=== PATIENT | male | born 1960 | race Caucasian/White ===

== ENCOUNTER 2017-11-29 11:03 | Inpatient (IN) | payer OTHER ==
[2017-11-29 11:46] VITALS: BMI 29.5
--- NOTE | 2017-11-29 12:14 | HP ---
COWS - Scale Resting Pulse: 0= [place] 80 or Below Sweatin= Chills/Flushing Restless Observation: 1= Difficult to Sit Still Pupil Size: 0= Normal to Room Light Bone or Joint Aches: 1= Mild Discomfort Runny Nose/ Eye Tearin= Nasal Congestion GI Upset > 30mins: 1= Stomach Cramp Tremor Observation: 1= Tremor [place], Not Seen Yawning Observation: 1= 1-2x During Session Anxiety or Irritability: 1=Feels Anxious/Irritable Goose Flesh Skin: 0=Smooth Skin COWS Score: 8 Admission ROS BHS - HPI Chief Complaint: I need help, I can't stop on my own, I went down the wrong track Allergies/Adverse Reactions: Allergies Allergy/AdvReac Type Severity Reaction Status Date / Time No Known Allergies Allergy Verified 11/29/17 12:14 History of Present Illness: 57 yo gentleman here for opiate detox - first time here, previous detox about 5 years ago elsewhere. Never in methadone or suboxone program. No seizures, no black outs, no overdoses. 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 Exam Limitations: Clinical Condition - Ebola screening Have you traveled outside of the country in the last 21 days: No (N) Have you had contact with anyone from an Ebola affected area: No Have you been sick,other than usual withdrawal symptoms: No Do you have a fever: No - Review of Systems Constitutional: Loss of Appetite, Malaise, Changes in sleep, Unintentional Wgt. Loss EENT: reports: Nose Congestion Respiratory: reports: No Symptoms reported Cardiac: reports: No Symptoms Reported GI: reports: Nausea, Poor Appetite : reports: No Symptoms Reported Musculoskeletal: reports: Back Pain, Muscle Pain Integumentary: reports: No Symptoms Reported Neuro: reports: Headache Endocrine: reports: No Symptoms Reported Hematology: reports: No Symptoms Reported Psychiatric: reports: Judgement Intact, Mood/Affect Appropiate, Orientated x3, Anxious Other Systems: Reviewed and Negative Patient History - Patient Medical History Hx Anemia: No Hx Asthma: No Hx Chronic Obstructive Pulmonary Disease (COPD): No Hx Cancer: No Hx Cardiac Disorders: No Hx Congestive Heart Failure: No Hx Hypertension: No Hx Hypercholesterolemia: No Hx Pacemaker: No HX Cerebrovascular Accident: No Hx Seizures: No Hx Dementia: No Hx Diabetes: No Hx Gastrointestinal Disorders: No Hx Liver Disease: No Hx Genitourinary Disorders: No Hx Sexually Transmitted Disorders: No Hx Renal Disease (ESRD): No Hx Thyroid Disease: No Hx Human Immunodeficiency Virus (HIV): No Hx Hepatitis C: No Hx Depression: No Hx Suicide Attempt: No Hx Bipolar Disorder: No Hx Schizophrenia: No - Patient Surgical History Past Surgical History: No - PPD History Previous Implant?: Yes Documented Results: Negative w/o proof Implanted On Prior R Admission?: No PPD to be Administered?: Yes - Reproductive History Patient is a Female of Child Bearing Age (11 -55 yrs old): No (male) - Smoking Cessation Smoking history: Current some day smoker Have you smoked in the past 12 months: Yes Aproximately how many cigarettes per day: 1 Initiated information on smoking cessation: Yes 'Breaking Loose' booklet given: 11/29/17 (give on floor) - Substance & Tx. History Hx Alcohol Use: No Hx Substance Use: Yes Substance Use Type: Heroin, Opiates Hx Substance Use Treatment: Yes (detox, ) - Substances Abused street methadone Route: Oral Frequency: 1-2 times per week Amount used: 20mg Age of first use: 51 Date of Last Use: 11/23/17 Heroin Route: Inhalation Frequency: Daily Amount used: 5 bags Age of first use: 41 Date of Last Use: 11/29/17 Family Disease History - Family Disease History Family Disease History: [place]: Mother (, ), Other: Father ( - never knew him), Mother, Brother (one living- healthy), Sister (one living - healthy), Son (one - living -healthy), Daughter (one - living - healthy) Admission Physical Exam S - Vital Signs Vital Signs: Vital Signs - 24 hr 11/29/17 11:44 Temperature 96.3 F L Pulse Rate 73 Respiratory 20 Rate Blood Pressure 137/83 - Physical General Appearance: Yes: Nourished, Appropriately Dressed, Mild Distress HEENTM: Yes: EOMI, Hearing grossly Normal, Normocephalic, Normal Voice, Pharynx Normal, Nasal Congestion Respiratory: Yes: Normal Breath Sounds, No Respiratory Distress Neck: Yes: No masses,lesions,Nodules, Supple Breast: Yes: Breast Exam Deferred Cardiology: Yes: Regular Rhythm, Regular Rate Abdominal: Yes: Flat, Soft Genitourinary: Yes: Hesitency Back: Yes: Normal Inspection Musculoskeletal: Yes: full range of Motion, Gait Steady Extremities: Yes: Normal Inspection, Normal Range of Motion, Non-Tender Neurological: Yes: Fully Oriented, Alert, Motor Strength 5/5, Normal Mood/Affect , Normal Response Integumentary: Yes: Normal Color, Warm Lymphatic: Yes: Within Normal Limits - Diagnostic (1) Opioid dependence with withdrawal Current Visit: Yes Status: Chronic (2) Dehydration Current Visit: Yes Status: Acute Cleared for Admission [facility] - Detox or Rehab [facility] Level of Care: Medically Managed Detox Regimen/Protocol: Methadone [facility] Breath Alcohol Content Breath Alcohol Content: 0 Urine Drug Screen - Results Drug Screen Negative: No Urine Drug Screen Results: OPI-Opiates, MTD-Methadone, OXY-Oxycodone
[2017-11-29] MEDS ORDERED: MAG HYDROX/AL HYDROX/SIMETH 30 ML UNIT-DOSE CUP PO PRN (12:20)
[2017-11-29] MEDS ORDERED: LOPERAMIDE HCL 2 MG CAPSULE PO PRN (12:20)
[2017-11-29] MEDS ORDERED: MENTHOL/PHENOL 1 EACH UD MM PRN (12:20)
[2017-11-29] MEDS ORDERED: P-EPHED 60MG/TRIPROLIDI 2.5MG TABLET PO PRN (12:20)
[2017-11-29] MEDS ORDERED: hydrOXYzine PAMOATE 50 MG CAPSULE (FP) PO PRN (12:20)
[2017-11-29] MEDS ORDERED: IBUPROFEN 400 MG TABLET (FP) PO PRN (12:20)
[2017-11-29] MEDS ORDERED: MAGNESIUM CITRATE 300 ML BOTTLE PO PRN (12:20)
[2017-11-29] MEDS ORDERED: guaiFENesin/D-METHORPHAN HB 10 ML UNIT-DOSE CUPS PO PRN (12:20)
[2017-11-29] MEDS ORDERED: ACETAMINOPHEN 325 MG TABLET (FP) PO PRN (12:20)
[2017-11-29] MEDS ORDERED: MAGNESIUM HYDROX 2400MG/30ML ORAL SUSPENSION 30 ML CUP PO PRN (12:20)
[2017-11-29] MEDS ORDERED: METHADONE HCL 10 MG TABLET (FOR DETOX USE ONLY) PO ONE ×2 (12:45→23:00)
[2017-11-29] MEDS: diazePAM 5 MG TABLET PO PRN ×2 (13:08→22:35)
[2017-11-29 18:24] LABS: URINE APPEARANCE TURBID; URINE BILIRUBIN NEGATIVE (NEGATIVE); URINE BLOOD NEGATIVE (NEGATIVE); URINE COLOR YELLOW; URINE GLUCOSE (UA) NEGATIVE (NEGATIVE); URINE KETONE NEGATIVE (NEGATIVE); URINE LEUK ESTERASE NEGATIVE (NEGATIVE); URINE NITRITE NEGATIVE (NEGATIVE); URINE PROTEIN NEGATIVE (NEGATIVE)
[2017-11-29] MEDS: THIAMINE HCL 100 MG TABLET (FP) PO SCH (22:35)
[2017-11-30] MEDS ORDERED: TRIMETHOBENZAMIDE HCL 200MG/2ML INJ IM PRN (05:51)
--- NOTE | 2017-11-30 08:39 | EKG ---
Test Reason : Blood Pressure : / mmHG Vent. Rate : 061 BPM Atrial Rate : 061 BPM P-R Int : 126 ms QRS Dur : 078 ms QT Int : 400 ms P-R-T Axes : 024 049 046 degrees QTc Int : 402 ms NORMAL SINUS RHYTHM NORMAL ECG NO PREVIOUS ECGS AVAILABLE Confirmed by YURY NÚÑEZ, MARCOS ([id number]) on 11/30/2017 8:39:21 AM Referred By: Confirmed By:MARCOS COTTON MD
[2017-11-30] MEDS ORDERED: METHADONE HCL 10 MG TABLET (FOR DETOX USE ONLY) PO ONE (10:00)
[2017-11-30] MEDS: PRENATAL VITAMINS W/ FOLIC ACID TABLET (FP) PO SCH (10:14)
[2017-11-30] MEDS: diazePAM 5 MG TABLET PO PRN ×3 (10:16→22:12)
[2017-11-30 10:20] LABS: HEMATOCRIT 46.2 % (35.4-49); HEMOGLOBIN 14.9 GM/dL (11.7-16.9); MCH 28.4 pg (25.7-33.7); MCHC 32.4 g/dl (32.0-35.9); MEAN CELL VOLUME 87.6 fl (80-96); MEAN PLT VOLUME 11.2 fl (7.5-11.1); PLATELET COUNT 124 K/MM3 (134-434); RBC 5.27 M/mm3 (4.00-5.60); RDW 13.1 % (11.9-15.9); WHITE BLOOD COUNT 14.1 K/mm3 (4.0-10.0)
[2017-11-30 10:26] LABS: ANION GAP 5 (8-16); BILIRUBIN,TOTAL 0.6 mg/dL (0.2-1.0); BLOOD UREA NITROGEN 17 mg/dL (7-18); CALCIUM 8.7 mg/dL (8.5-10.1); CHLORIDE 104 mmol/L (98-107); CO2 31 mmol/L (21-32); GLUCOSE,RANDOM 108 mg/dL (74-106); SGOT/AST 14 U/L (15-37); SGPT/ALT 24 U/L (12-78); SODIUM 140 mmol/L (136-145)
[2017-11-30 10:28] LABS: ALK PHOS 72 U/L (45-117); CREATININE 1.1 mg/dL (0.7-1.3)
--- NOTE | 2017-11-30 14:19 | PN ---
S COWS - Scale Resting Pulse: 0= [place] 80 or Below Sweatin= Chills/Flushing Restless Observation: 1= Difficult to Sit Still Pupil Size: 0= Normal to Room Light Bone or Joint Aches: 2= Severe Diffuse Aches Runny Nose/ Eye Tearin= Runny Nose/Eyes GI Upset > 30mins: 3= Vomiting/Diarrhea Tremor Observation of Outstretched Hands: 1= Tremor [place], Not Seen Yawning Observation: 0= None Anxiety or Irritability: 1=Feels Anxious/Irritable Goose Flesh Skin: 0=Smooth Skin COWS Score: 11 [facility] Progress Note (SOAP) Subjective: nausea vomiting "earlier today" joints aches tolerates food and fluid better that stop vomiting Objective: 11/30/17 14:15 Vital Signs Temperature 97.0 F L 11/30/17 10:09 Pulse Rate 76 11/30/17 10:09 Respiratory Rate 18 11/30/17 10:09 Blood Pressure 146/93 11/30/17 10:09 O2 Sat by Pulse Oximetry (%) Laboratory Last Values WBC 14.1 K/mm3 (4.0-10.0) H 11/30/17 08:00 RBC 5.27 M/mm3 (4.00-5.60) 11/30/17 08:00 Hgb 14.9 GM/dL (11.7-16.9) 11/30/17 08:00 Hct 46.2 % (35.4-49) 11/30/17 08:00 MCV 87.6 fl (80-96) 11/30/17 08:00 MCH 28.4 pg (25.7-33.7) 11/30/17 08:00 MCHC 32.4 g/dl (32.0-35.9) 11/30/17 08:00 RDW 13.1 % (11.9-15.9) 11/30/17 08:00 Plt Count 124 K/MM3 (134-434) L 11/30/17 08:00 MPV 11.2 fl (7.5-11.1) H 11/30/17 08:00 Sodium 140 mmol/L (136-145) 11/30/17 08:00 Potassium 4.0 mmol/L (3.5-5.1) 11/30/17 08:00 Chloride 104 mmol/L (98-107) 11/30/17 08:00 Carbon Dioxide 31 mmol/L (21-32) 11/30/17 08:00 Anion Gap 5 (8-16) L 11/30/17 08:00 BUN 17 mg/dL (7-18) 11/30/17 08:00 Creatinine 1.1 mg/dL (0.7-1.3) 11/30/17 08:00 Creat Clearance w eGFR > 60 (>60) 11/30/17 08:00 Random Glucose 108 mg/dL (74-106) H 11/30/17 08:00 Calcium 8.7 mg/dL (8.5-10.1) 11/30/17 08:00 Total Bilirubin 0.6 mg/dL (0.2-1.0) 11/30/17 08:00 AST 14 U/L (15-37) L 11/30/17 08:00 ALT 24 U/L (12-78) 11/30/17 08:00 Alkaline Phosphatase 72 U/L (45-117) 11/30/17 08:00 Total Protein 8.0 g/dl (6.4-8.2) 11/30/17 08:00 Albumin 4.0 g/dl (3.4-5.0) 11/30/17 08:00 Urine Color Yellow 11/29/17 13:46 Urine Appearance Turbid 11/29/17 13:46 Urine pH 5.0 (5.0-8.0) 11/29/17 13:46 Ur Specific [place] 1.030 (1.001-1.035) 11/29/17 13:46 Urine Protein Negative (NEGATIVE) 11/29/17 13:46 Urine Glucose (UA) Negative (NEGATIVE) 11/29/17 13:46 Urine Ketones Negative (NEGATIVE) 11/29/17 13:46 Urine Blood Negative (NEGATIVE) 11/29/17 13:46 Urine Nitrite Negative (NEGATIVE) 11/29/17 13:46 Urine Bilirubin Negative (NEGATIVE) 11/29/17 13:46 Urine Urobilinogen 2.0 mg/dL (0.2-1.0) 11/29/17 13:46 Ur Leukocyte Esterase Negative (NEGATIVE) 11/29/17 13:46 RPR Titer Nonreactive (NONREACTIVE) 11/30/17 08:00 lab noted Assessment: 11/30/17 14:19 withdrawal sx Plan: continue detox
[2017-11-30] MEDS ORDERED: amLODIPine BESYLATE 5 MG TABLET (FP) PO SCH (22:00)
[2017-11-30] MEDS: THIAMINE HCL 100 MG TABLET (FP) PO SCH (22:12)
[2017-12-01] MEDS ORDERED: METHADONE HCL 5 MG TABLET (FOR DETOX USE ONLY) PO ONE (10:00)
[2017-12-01] MEDS ORDERED: amLODIPine BESYLATE 5 MG TABLET (FP) PO SCH (10:00)
[2017-12-01] MEDS: amLODIPine BESYLATE 5 MG TABLET (FP) PO SCH (10:17)
[2017-12-01] MEDS: diazePAM 5 MG TABLET PO PRN ×3 (10:17→22:23)
[2017-12-01] MEDS: PRENATAL VITAMINS W/ FOLIC ACID TABLET (FP) PO SCH (10:17)
--- NOTE | 2017-12-01 10:57 | PN ---
BHS COWS - Scale Resting Pulse: 0= [place] 80 or Below Sweatin= Chills/Flushing Restless Observation: 1= Difficult to Sit Still Pupil Size: 0= Normal to Room Light Bone or Joint Aches: 2= Severe Diffuse Aches Runny Nose/ Eye Tearin= Nasal Congestion GI Upset > 30mins: 1= Stomach Cramp Tremor Observation of Outstretched Hands: 1= Tremor [place], Not Seen Yawning Observation: 2= >3x During Session Anxiety or Irritability: 0= None Goose Flesh Skin: 0=Smooth Skin COWS Score: 9 [facility]HS Progress Note (SOAP) Subjective: tremor stuffy nose anxiety sweat restlessness Objective: 12/01/17 10:54 Vital Signs Temperature 97.6 F 12/01/17 10:45 Pulse Rate 84 12/01/17 10:45 Respiratory Rate 17 12/01/17 10:45 Blood Pressure 133/91 12/01/17 10:45 O2 Sat by Pulse Oximetry (%) Laboratory Last Values WBC 14.1 K/mm3 (4.0-10.0) H 11/30/17 08:00 RBC 5.27 M/mm3 (4.00-5.60) 11/30/17 08:00 Hgb 14.9 GM/dL (11.7-16.9) 11/30/17 08:00 Hct 46.2 % (35.4-49) 11/30/17 08:00 MCV 87.6 fl (80-96) 11/30/17 08:00 MCH 28.4 pg (25.7-33.7) 11/30/17 08:00 MCHC 32.4 g/dl (32.0-35.9) 11/30/17 08:00 RDW 13.1 % (11.9-15.9) 11/30/17 08:00 Plt Count 124 K/MM3 (134-434) L 11/30/17 08:00 MPV 11.2 fl (7.5-11.1) H 11/30/17 08:00 Sodium 140 mmol/L (136-145) 11/30/17 08:00 Potassium 4.0 mmol/L (3.5-5.1) 11/30/17 08:00 Chloride 104 mmol/L (98-107) 11/30/17 08:00 Carbon Dioxide 31 mmol/L (21-32) 11/30/17 08:00 Anion Gap 5 (8-16) L 11/30/17 08:00 BUN 17 mg/dL (7-18) 11/30/17 08:00 Creatinine 1.1 mg/dL (0.7-1.3) 11/30/17 08:00 Creat Clearance w eGFR > 60 (>60) 11/30/17 08:00 Random Glucose 108 mg/dL (74-106) H 11/30/17 08:00 Calcium 8.7 mg/dL (8.5-10.1) 11/30/17 08:00 Total Bilirubin 0.6 mg/dL (0.2-1.0) 11/30/17 08:00 AST 14 U/L (15-37) L 11/30/17 08:00 ALT 24 U/L (12-78) 11/30/17 08:00 Alkaline Phosphatase 72 U/L (45-117) 11/30/17 08:00 Total Protein 8.0 g/dl (6.4-8.2) 11/30/17 08:00 Albumin 4.0 g/dl (3.4-5.0) 11/30/17 08:00 Urine Color Yellow 11/29/17 13:46 Urine Appearance Turbid 11/29/17 13:46 Urine pH 5.0 (5.0-8.0) 11/29/17 13:46 Ur Specific [place] 1.030 (1.001-1.035) 11/29/17 13:46 Urine Protein Negative (NEGATIVE) 11/29/17 13:46 Urine Glucose (UA) Negative (NEGATIVE) 11/29/17 13:46 Urine Ketones Negative (NEGATIVE) 11/29/17 13:46 Urine Blood Negative (NEGATIVE) 11/29/17 13:46 Urine Nitrite Negative (NEGATIVE) 11/29/17 13:46 Urine Bilirubin Negative (NEGATIVE) 11/29/17 13:46 Urine Urobilinogen 2.0 mg/dL (0.2-1.0) 11/29/17 13:46 Ur Leukocyte Esterase Negative (NEGATIVE) 11/29/17 13:46 RPR Titer Nonreactive (NONREACTIVE) 11/30/17 08:00 lab noted Assessment: 12/01/17 10:57 withdrawal sx Plan: continue detox
[2017-12-01] MEDS: THIAMINE HCL 100 MG TABLET (FP) PO SCH (22:23)
[2017-12-02] MEDS ORDERED: METHADONE HCL 5 MG TABLET (FOR DETOX USE ONLY) PO ONE (10:00)
--- NOTE | 2017-12-02 10:02 | PN ---
BHS Progress Note (SOAP) Subjective: joint ache sweat tremor restlessness anxiety Objective: 12/02/17 10:00 Vital Signs Temperature 97.2 F L 12/02/17 06:24 Pulse Rate 61 12/02/17 06:24 Respiratory Rate 18 12/02/17 06:24 Blood Pressure 110/70 12/02/17 06:24 O2 Sat by Pulse Oximetry (%) Laboratory Last Values WBC 14.1 K/mm3 (4.0-10.0) H 11/30/17 08:00 RBC 5.27 M/mm3 (4.00-5.60) 11/30/17 08:00 Hgb 14.9 GM/dL (11.7-16.9) 11/30/17 08:00 Hct 46.2 % (35.4-49) 11/30/17 08:00 MCV 87.6 fl (80-96) 11/30/17 08:00 MCH 28.4 pg (25.7-33.7) 11/30/17 08:00 MCHC 32.4 g/dl (32.0-35.9) 11/30/17 08:00 RDW 13.1 % (11.9-15.9) 11/30/17 08:00 Plt Count 124 K/MM3 (134-434) L 11/30/17 08:00 MPV 11.2 fl (7.5-11.1) H 11/30/17 08:00 Sodium 140 mmol/L (136-145) 11/30/17 08:00 Potassium 4.0 mmol/L (3.5-5.1) 11/30/17 08:00 Chloride 104 mmol/L (98-107) 11/30/17 08:00 Carbon Dioxide 31 mmol/L (21-32) 11/30/17 08:00 Anion Gap 5 (8-16) L 11/30/17 08:00 BUN 17 mg/dL (7-18) 11/30/17 08:00 Creatinine 1.1 mg/dL (0.7-1.3) 11/30/17 08:00 Creat Clearance w eGFR > 60 (>60) 11/30/17 08:00 Random Glucose 108 mg/dL (74-106) H 11/30/17 08:00 Calcium 8.7 mg/dL (8.5-10.1) 11/30/17 08:00 Total Bilirubin 0.6 mg/dL (0.2-1.0) 11/30/17 08:00 AST 14 U/L (15-37) L 11/30/17 08:00 ALT 24 U/L (12-78) 11/30/17 08:00 Alkaline Phosphatase 72 U/L (45-117) 11/30/17 08:00 Total Protein 8.0 g/dl (6.4-8.2) 11/30/17 08:00 Albumin 4.0 g/dl (3.4-5.0) 11/30/17 08:00 Urine Color Yellow 11/29/17 13:46 Urine Appearance Turbid 11/29/17 13:46 Urine pH 5.0 (5.0-8.0) 11/29/17 13:46 Ur Specific [place] 1.030 (1.001-1.035) 11/29/17 13:46 Urine Protein Negative (NEGATIVE) 11/29/17 13:46 Urine Glucose (UA) Negative (NEGATIVE) 11/29/17 13:46 Urine Ketones Negative (NEGATIVE) 11/29/17 13:46 Urine Blood Negative (NEGATIVE) 11/29/17 13:46 Urine Nitrite Negative (NEGATIVE) 11/29/17 13:46 Urine Bilirubin Negative (NEGATIVE) 11/29/17 13:46 Urine Urobilinogen 2.0 mg/dL (0.2-1.0) 11/29/17 13:46 Ur Leukocyte Esterase Negative (NEGATIVE) 11/29/17 13:46 RPR Titer Nonreactive (NONREACTIVE) 11/30/17 08:00 lab noted Assessment: 12/02/17 10:01 withdrawal sx Plan: continue detox
[2017-12-02] MEDS: PRENATAL VITAMINS W/ FOLIC ACID TABLET (FP) PO SCH (10:36)
[2017-12-02] MEDS: amLODIPine BESYLATE 5 MG TABLET (FP) PO SCH (10:38)
[2017-12-02] MEDS: THIAMINE HCL 100 MG TABLET (FP) PO SCH (22:16)
[2017-12-03] MEDS ORDERED: COLLOIDAL OATMEAL 1 BAR EACH TP PRN (08:59)
[2017-12-03] MEDS ORDERED: METHADONE HCL 10 MG TABLET (FOR DETOX USE ONLY) PO ONE (10:00)
[2017-12-03] MEDS: amLODIPine BESYLATE 5 MG TABLET (FP) PO SCH (10:18)
[2017-12-03] MEDS: PRENATAL VITAMINS W/ FOLIC ACID TABLET (FP) PO SCH (10:18)
--- NOTE | 2017-12-03 12:25 | PN ---
BHS Progress Note (SOAP) Subjective: reports feeling better no body aches less sweat Objective: 12/03/17 12:24 Vital Signs Temperature 97.0 F L 12/03/17 10:30 Pulse Rate 82 12/03/17 10:30 Respiratory Rate 16 12/03/17 10:30 Blood Pressure 129/80 12/03/17 10:30 O2 Sat by Pulse Oximetry (%) Laboratory Last Values WBC 14.1 K/mm3 (4.0-10.0) H 11/30/17 08:00 RBC 5.27 M/mm3 (4.00-5.60) 11/30/17 08:00 Hgb 14.9 GM/dL (11.7-16.9) 11/30/17 08:00 Hct 46.2 % (35.4-49) 11/30/17 08:00 MCV 87.6 fl (80-96) 11/30/17 08:00 MCH 28.4 pg (25.7-33.7) 11/30/17 08:00 MCHC 32.4 g/dl (32.0-35.9) 11/30/17 08:00 RDW 13.1 % (11.9-15.9) 11/30/17 08:00 Plt Count 124 K/MM3 (134-434) L 11/30/17 08:00 MPV 11.2 fl (7.5-11.1) H 11/30/17 08:00 Sodium 140 mmol/L (136-145) 11/30/17 08:00 Potassium 4.0 mmol/L (3.5-5.1) 11/30/17 08:00 Chloride 104 mmol/L (98-107) 11/30/17 08:00 Carbon Dioxide 31 mmol/L (21-32) 11/30/17 08:00 Anion Gap 5 (8-16) L 11/30/17 08:00 BUN 17 mg/dL (7-18) 11/30/17 08:00 Creatinine 1.1 mg/dL (0.7-1.3) 11/30/17 08:00 Creat Clearance w eGFR > 60 (>60) 11/30/17 08:00 Random Glucose 108 mg/dL (74-106) H 11/30/17 08:00 Calcium 8.7 mg/dL (8.5-10.1) 11/30/17 08:00 Total Bilirubin 0.6 mg/dL (0.2-1.0) 11/30/17 08:00 AST 14 U/L (15-37) L 11/30/17 08:00 ALT 24 U/L (12-78) 11/30/17 08:00 Alkaline Phosphatase 72 U/L (45-117) 11/30/17 08:00 Total Protein 8.0 g/dl (6.4-8.2) 11/30/17 08:00 Albumin 4.0 g/dl (3.4-5.0) 11/30/17 08:00 Urine Color Yellow 11/29/17 13:46 Urine Appearance Turbid 11/29/17 13:46 Urine pH 5.0 (5.0-8.0) 11/29/17 13:46 Ur Specific [place] 1.030 (1.001-1.035) 11/29/17 13:46 Urine Protein Negative (NEGATIVE) 11/29/17 13:46 Urine Glucose (UA) Negative (NEGATIVE) 11/29/17 13:46 Urine Ketones Negative (NEGATIVE) 11/29/17 13:46 Urine Blood Negative (NEGATIVE) 11/29/17 13:46 Urine Nitrite Negative (NEGATIVE) 11/29/17 13:46 Urine Bilirubin Negative (NEGATIVE) 11/29/17 13:46 Urine Urobilinogen 2.0 mg/dL (0.2-1.0) 11/29/17 13:46 Ur Leukocyte Esterase Negative (NEGATIVE) 11/29/17 13:46 RPR Titer Nonreactive (NONREACTIVE) 11/30/17 08:00 lab noted Assessment: 12/03/17 12:24 mild withdrawal sx 12/03/17 12:25 Plan: medically supervised detox
[2017-12-03] MEDS: THIAMINE HCL 100 MG TABLET (FP) PO SCH (22:43)
[2017-12-04] MEDS ORDERED: METHADONE HCL 5 MG TABLET (FOR DETOX USE ONLY) PO ONE (06:00)
--- NOTE | 2017-12-04 08:37 | DS ---
[facility] Detox Discharge Summary Admission Date: 11/29/17 Discharge Date: 11/27/17 - History Present History: Opioid Dependence - Physical Exam Results Vital Signs: Vital Signs Temperature 97.5 F L 12/04/17 06:00 Pulse Rate 62 12/04/17 06:00 Respiratory Rate 18 12/04/17 06:00 Blood Pressure 117/76 12/04/17 06:00 O2 Sat by Pulse Oximetry (%) Pertinent Admission Physical Exam Findings: withdrawal sx Vital Signs Temperature 97.5 F L 12/04/17 06:00 Pulse Rate 62 12/04/17 06:00 Respiratory Rate 18 12/04/17 06:00 Blood Pressure 117/76 12/04/17 06:00 O2 Sat by Pulse Oximetry (%) Laboratory Last Values WBC 14.1 K/mm3 (4.0-10.0) H 11/30/17 08:00 RBC 5.27 M/mm3 (4.00-5.60) 11/30/17 08:00 Hgb 14.9 GM/dL (11.7-16.9) 11/30/17 08:00 Hct 46.2 % (35.4-49) 11/30/17 08:00 MCV 87.6 fl (80-96) 11/30/17 08:00 MCH 28.4 pg (25.7-33.7) 11/30/17 08:00 MCHC 32.4 g/dl (32.0-35.9) 11/30/17 08:00 RDW 13.1 % (11.9-15.9) 11/30/17 08:00 Plt Count 124 K/MM3 (134-434) L 11/30/17 08:00 MPV 11.2 fl (7.5-11.1) H 11/30/17 08:00 Sodium 140 mmol/L (136-145) 11/30/17 08:00 Potassium 4.0 mmol/L (3.5-5.1) 11/30/17 08:00 Chloride 104 mmol/L (98-107) 11/30/17 08:00 Carbon Dioxide 31 mmol/L (21-32) 11/30/17 08:00 Anion Gap 5 (8-16) L 11/30/17 08:00 BUN 17 mg/dL (7-18) 11/30/17 08:00 Creatinine 1.1 mg/dL (0.7-1.3) 11/30/17 08:00 Creat Clearance w eGFR > 60 (>60) 11/30/17 08:00 Random Glucose 108 mg/dL (74-106) H 11/30/17 08:00 Calcium 8.7 mg/dL (8.5-10.1) 11/30/17 08:00 Total Bilirubin 0.6 mg/dL (0.2-1.0) 11/30/17 08:00 AST 14 U/L (15-37) L 11/30/17 08:00 ALT 24 U/L (12-78) 11/30/17 08:00 Alkaline Phosphatase 72 U/L (45-117) 11/30/17 08:00 Total Protein 8.0 g/dl (6.4-8.2) 11/30/17 08:00 Albumin 4.0 g/dl (3.4-5.0) 11/30/17 08:00 Urine Color Yellow 11/29/17 13:46 Urine Appearance Turbid 11/29/17 13:46 Urine pH 5.0 (5.0-8.0) 11/29/17 13:46 Ur Specific [place] 1.030 (1.001-1.035) 11/29/17 13:46 Urine Protein Negative (NEGATIVE) 11/29/17 13:46 Urine Glucose (UA) Negative (NEGATIVE) 11/29/17 13:46 Urine Ketones Negative (NEGATIVE) 11/29/17 13:46 Urine Blood Negative (NEGATIVE) 11/29/17 13:46 Urine Nitrite Negative (NEGATIVE) 11/29/17 13:46 Urine Bilirubin Negative (NEGATIVE) 11/29/17 13:46 Urine Urobilinogen 2.0 mg/dL (0.2-1.0) 11/29/17 13:46 Ur Leukocyte Esterase Negative (NEGATIVE) 11/29/17 13:46 RPR Titer Nonreactive (NONREACTIVE) 11/30/17 08:00 lab noted - Treatment Hospital Course: Detox Protocol Followed, Detoxed Safely, Responded well, Discharged Condition Good, Rehab Referral Accepted Patient has Accepted [facility] - Medication Discharge Medications: Ambulatory Orders Amlodipine Besylate [Norvasc -] 5 mg PO DAILY 11/30/17 - Diagnosis (1) Hypertension Current Visit: Yes Status: Chronic Qualifiers: Hypertension type: essential hypertension Qualified Code(s): I10 - Essential (primary) hypertension (2) Opioid dependence with withdrawal Current Visit: Yes Status: Chronic - AMA Did Patient Leave Against Medical Advice: No
[2017-12-04] MEDS: amLODIPine BESYLATE 5 MG TABLET (FP) PO SCH (09:00)
[2017-12-04 11:38] VITALS: BP 156/89; PULSE 86; TEMP 98.3
== END 2017-12-04 09:14 | disposition home or self-care (01) | DRG 773 ==
LOC: YASAS 11:03 → Y6N 12:22
PROVIDERS: ADMIT Internal Medicine; ATTEND Internal Medicine
PROC: HZ2ZZZZ Detoxification Services for Substance Abuse Treatment (ICD-10-PCS; principal; 2017-11-29)
DX: F11.23 Opioid dependence with withdrawal (principal); I10 Essential (primary) hypertension; E86.0 Dehydration
CPT/HCPCS: 36415; 80053; 81003; 85027; 86593; 93005; 93010

== ENCOUNTER 2018-01-02 15:29 | Inpatient (IN) | payer OTHER ==
--- NOTE | 2018-01-02 15:25 | HP ---
[facility] Rehab Assess/Revision - Admission History Admitted to Rehab from: [facility] Date of Admission to Rehab: 01/02/2018 - Vital signs Vital Signs: NOTED; STABLE. - Findings Detox History & Physical reviewed: Yes Concur with findings: Yes Comments/Additional Findings: PATIENT'S MEDICAL / MEDICATION HISTORY REVIEWED PRIOR TO DISCHARGE FROM DETOX UNIT. GÓMEZ WAS DISCHARGED FROM DETOX UNIT TO BE TAKEN TO REHAB UNIT IN STABLE MEDICAL CONDITION. Inpatient Rehab Admission - Initial Determination Are CD services needed?: Yes Free of communicable disease: Yes Not in need of hospitalization: Yes - Rehab Admission Criteria Previous failed treatment: Yes Comorbidities: Yes Patient is meeting Inpatient Rehab admission criteria:: Yes
[~2018-01-02 15:29] MED LIST: ACETAMINOPHEN 325 MG TABLET (FP) PO PRN; IBUPROFEN 400 MG TABLET (FP) PO PRN; LOPERAMIDE HCL 2 MG CAPSULE PO PRN; MAG HYDROX/AL HYDROX/SIMETH 30 ML UNIT-DOSE CUP PO PRN; MAGNESIUM CITRATE 300 ML BOTTLE PO PRN; MAGNESIUM HYDROX 2400MG/30ML ORAL SUSPENSION 30 ML CUP PO PRN; MENTHOL/PHENOL 1 EACH UD MM PRN; P-EPHED 60MG/TRIPROLIDI 2.5MG TABLET PO PRN; guaiFENesin/D-METHORPHAN HB 10 ML UNIT-DOSE CUPS PO PRN
[2018-01-02 15:47] VITALS: BMI 29.9
[2018-01-02] MEDS: THIAMINE HCL 100 MG TABLET (FP) PO SCH (21:18)
[2018-01-03] MEDS: PRENATAL VITAMINS W/ FOLIC ACID TABLET (FP) PO SCH (09:36)
[2018-01-03] MEDS: amLODIPine BESYLATE 5 MG TABLET (FP) PO SCH (09:37)
[2018-01-03] MEDS: THIAMINE HCL 100 MG TABLET (FP) PO SCH (21:11)
[2018-01-04] MEDS: amLODIPine BESYLATE 5 MG TABLET (FP) PO SCH (09:43)
[2018-01-04] MEDS: PRENATAL VITAMINS W/ FOLIC ACID TABLET (FP) PO SCH (09:43)
[2018-01-04] MEDS: THIAMINE HCL 100 MG TABLET (FP) PO SCH (21:26)
--- NOTE | 2018-01-05 06:42 | HP ---
Psychiatrist Admission - Data Date of interview: 01/05/18 Admission source: 3N Identifying data: This is the first [facility] admission for this 57 years old single Black male living as , father of 4 children, unemployed on SSI, domiciled Medical History: Significant for hypertension. Psychiatric History: Denies history of previous psychiatric treatment Physical/Sexual Abuse/Trauma History: Denies Additional Comment: Report history of 2 previous misdemeanor arrrests Vital Signs: Vital Signs - 24 hr 01/04/18 01/04/18 01/05/18 06:46 10:00 00:30 Temperature 97.4 F L Pulse Rate 62 73 Respiratory 18 18 Rate Blood Pressure 121/78 132/85 01/05/18 03:30 Temperature Pulse Rate Respiratory 18 Rate Blood Pressure Allergies/Adverse Reactions: Allergies Allergy/AdvReac Type Severity Reaction Status Date / Time No Known Allergies Allergy Verified 01/02/18 15:34 Date of last physical exam: 12/29/17 Concur with the findings of this exam: Yes - Substance Abuse/Tx History Hx Alcohol Use: No Hx Substance Use: Yes Substance Use Type: Heroin (Started using heroin at age 41, consumes 5 bags daily. Last used on 12/29/17) Hx Substance Use Treatment: Yes (2 previous inpt detox admissions @ [facility]) Mental Status Exam - Mental Status Exam Alert and Oriented to: Time, Place, Person Cognitive Function: Fair Patient Appearance: Well Groomed Mood: Hopeful, Euthymic Patient Behavior: Cooperative Speech Pattern: Clear Voice Loudness: Normal Thought Process: Intact, Goal Oriented Thought Disorder: Not Present Hallucinations: Denies Suicidal Ideation: Denies Homicidal Ideation: Denies Insight/Judgement: Poor Sleep: Fair Muscle strength/Tone: Normal Gait/Station: Normal Psychiatric Findings - Problem List ([place] 1, 2,3) (1) Opioid dependence Current Visit: Yes Status: Acute (2) Hypertension Current Visit: No Status: Chronic Qualifiers: Hypertension type: essential hypertension Qualified Code(s): I10 - Essential (primary) hypertension - Initial Treatment Plan Initial Treatment Plan: Monitor progress
[2018-01-05 06:54] VITALS: BP 137/83; PULSE 64; TEMP 97.7
[2018-01-05] MEDS: PRENATAL VITAMINS W/ FOLIC ACID TABLET (FP) PO SCH (09:01)
[2018-01-05] MEDS: amLODIPine BESYLATE 5 MG TABLET (FP) PO SCH (09:01)
--- NOTE | 2018-01-05 10:16 | PN ---
Psychiatric Progress Note Vital Signs: Vital Signs Period Temp Pulse Resp BP Sys/Bravo Pulse Ox Last 24 Hr 97.7 F 64 18-18 137/83 Date of Session: 01/05/18 Chief Complaint:: AMA Discharge Note HPI: Patient addressing Opoid Dependence ROS: HTN Current Side Effect: No Lab tests ordered: Yes Lab tests reviewed: Yes Provider note:: Patient has not completed this program. Today he has decided to leave against medical advice citing "work related". 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 Patient is determined to leave despite encouragement to stay and complete this program. He is stable for leaving against medical advice Total face to face time:: 25 Mental Status Exam - Mental Status Exam Alert and Oriented to: Time, Place, Person Cognitive Function: Fair Patient Appearance: Well Groomed Mood: Hopeful, Euthymic Affect: Appropriate Patient Behavior: Cooperative Speech Pattern: Clear Voice Loudness: Normal Thought Process: Intact, Goal Oriented Thought Disorder: Not Present Hallucinations: Denies Suicidal Ideation: Denies Homicidal Ideation: Denies Insight/Judgement: Poor Sleep: Fair Appetite: Good Muscle strength/Tone: Normal Gait/Station: Normal Psychiatric Treatment Plan - Problem List (2) Hypertension Qualifiers: Hypertension type: essential hypertension Qualified Code(s): I10 - Essential (primary) hypertension Initial treatment plan: Patient is leaving AMA
== END 2018-01-05 08:47 | disposition left against medical advice (07) | DRG 770 ==
LOC: YASAS 15:29 → Y3W 15:30
PROVIDERS: ADMIT Psychiatry & Neurology Psychiatry; ATTEND Psychiatry & Neurology Psychiatry
PROC: HZ42ZZZ Group Counseling for Substance Abuse Treatment, Cognitive-Behavioral (ICD-10-PCS; principal; 2018-01-02)
DX: F11.20 Opioid dependence, uncomplicated (principal); I10 Essential (primary) hypertension